=== PATIENT | female | born 1995 | race Two or more races ===

== ENCOUNTER 2020-05-21 21:14 | Emergency (ER) | payer OTHER ==
[~2020-05-21] VITALS: Ht 162.6 cm; Wt 81.2 kg
[2020-05-21] MEDS ORDERED: PRENATABS RX T1 EACH (21:38)
== END 2020-05-21 22:52 | disposition home or self-care (01) ==
LOC: ER 21:14
DX: S01.521A Laceration with foreign body of lip, initial encounter (principal); W18.09XA Striking against other object with subsequent fall, initial encounter; Y93.89 Activity, other specified; Y92.018 Other place in single-family (private) house as the place of occurrence of the external cause; Y99.8 Other external cause status

== ENCOUNTER 2020-06-25 08:07 | Inpatient (IN) | payer OTHER ==
[~2020-06-25] VITALS: Ht 162.6 cm; Wt 82.6 kg
[~2020-06-25 08:07] MED LIST: PRENATABS RX T1 EACH
== END 2020-06-27 17:34 | DRG 807 ==
LOC: OB/GYN 08:07 → LDR 08:07 → OB/GYN 06-26 00:17
PROVIDERS: ADMIT Obstetrics & Gynecology; ATTEND Obstetrics & Gynecology
PROC: 10E0XZZ Delivery of Products of Conception, External Approach (ICD-10-PCS; principal; 2020-06-25)
PROC: 4A1HXFZ Monitoring of Products of Conception, Cardiac Rhythm, External Approach (ICD-10-PCS; 2020-06-25)
DX: O80 Encounter for full-term uncomplicated delivery (principal); Z37.0 Single live birth; Z3A.37 37 weeks gestation of pregnancy; Z86.19 Personal history of other infectious and parasitic diseases